=== PATIENT | male | born 1970 | race Caucasian/White ===

== ENCOUNTER 2020-01-29 14:04 | Inpatient (IN) ==
[2020-01-29] MEDS ORDERED: Fluticasone Propionate Nasal 50 MCG/SPRAY BOTTLE NS PRN (14:14)
[2020-01-29] MEDS ORDERED: USTEKINUMAB 45 MG SQ SCH (14:15)
[2020-01-29] MEDS: Gabapentin 100 MG CAPSULE PO SCH ×2 (15:56→21:06)
[2020-01-30 05:44] LABS: Basophils % 0.5 %; Eosinophils # 0.2 K/mcL (0.0-0.6); Eosinophils % 4.1 %; Hematocrit 31.7 % (37.5-50.1); Hemoglobin 10.3 g/dL (12.9-16.9); Immature Granulocytes % 0.5 % (0-4); Lymphocytes # 2.1 K/mcL (0.6-4.6); Lymphocytes % 38.1 %; Mean Corpuscular HGB Conc 32.5 g/dL (31.6-35.5); Mean Corpuscular Hemoglobin 29.8 pg (28.0-33.3); Mean Corpuscular Volume 91.6 fL (83.0-100.0); Mean Platelet Volume 10.2 fL (9.4-12.4); Monocytes # 0.6 K/mcL (0.0-1.3); Monocytes % 10.6 %; Neutrophils # 2.6 K/mcL (1.6-8.9); Nucleated Red Blood Cells 0.7 /100 WBC (0); Platelet Count 279 K/mcL (140-400); Red Blood Count 3.46 M/mcL (4.19-5.50); Red Cell Distribution Width 17.9 % (11.5-14.5); Segmented Neutrophils % 46.2 %; White Blood Count 5.6 K/mcL (4.3-11.1)
[2020-01-30 05:59] LABS: BUN/Creatinine Ratio 5 (6-26); Blood Urea Nitrogen 5 mg/dL (6-20); Calcium 8.3 mg/dL (8.6-10.3); Carbon Dioxide 26 mEq/L (23-29); Chloride 102 mEq/L (98-107); Glucose 103 mg/dL (70-105); Osmolality,Calculated 274 (280-300); Potassium 3.6 mEq/L (3.5-5.1); Sodium 133 mEq/L (136-145); eGFR For African Americans > 60 (> 60); eGFR For Non-African Americans > 60 (> 60)
[2020-01-30] MEDS: Nicotine 21 MG PATCH.TD24 TD SCH (08:58)
[2020-01-30] MEDS: Gabapentin 100 MG CAPSULE PO SCH ×3 (08:58→20:49)
[2020-01-30] MEDS ORDERED: Cyanocobalamin (B-12) 1,000 MCG TABLET PO SCH (09:00)
[2020-01-30] MEDS ORDERED: Budesonide/Formoterol 160/4.5 1 PUFF INH IH SCH (10:00)
[2020-01-31] MEDS: Gabapentin 100 MG CAPSULE PO SCH ×3 (08:18→20:13)
[2020-01-31] MEDS: Cyanocobalamin (B-12) 1,000 MCG/ML VIAL SQ SCH (08:19)
[2020-01-31] MEDS: Nicotine 21 MG PATCH.TD24 TD SCH (08:20)
[2020-01-31] MEDS ORDERED: Testosterone Cypionate 200 MG/ML 10 ML MDV IM SCH (10:00)
[2020-02-01] MEDS: *HR* Enoxaparin 40 MG/0.4 ML SYRINGE SQ SCH (04:39)
[2020-02-01] MEDS: Gabapentin 100 MG CAPSULE PO SCH ×3 (08:40→21:52)
[2020-02-01] MEDS: Cyanocobalamin (B-12) 1,000 MCG/ML VIAL SQ SCH (08:40)
[2020-02-01] MEDS: Nicotine 21 MG PATCH.TD24 TD SCH (08:40)
[2020-02-01] MEDS ORDERED: E-Z-HD (BARIUM SULF) SUSPENSION PO ONE (11:46)
[2020-02-01] MEDS ORDERED: Barium Sulfate 1 TAB TABLET PO ONE (11:46)
[2020-02-01] MEDS ORDERED: E-Z-PAQUE (BARIUM SULF) SUSP 1 BOTTLE PO ONE (11:46)
[2020-02-02] MEDS: *HR* Enoxaparin 40 MG/0.4 ML SYRINGE SQ SCH (05:14)
[2020-02-02] MEDS: Nicotine 21 MG PATCH.TD24 TD SCH (08:06)
[2020-02-02] MEDS: Gabapentin 100 MG CAPSULE PO SCH ×3 (08:07→21:12)
[2020-02-02] MEDS: Cyanocobalamin (B-12) 1,000 MCG/ML VIAL SQ SCH (08:08)
[2020-02-03] MEDS: *HR* Enoxaparin 40 MG/0.4 ML SYRINGE SQ SCH (07:45)
[2020-02-03] MEDS: Gabapentin 100 MG CAPSULE PO SCH (07:46)
[2020-02-03] MEDS: Cyanocobalamin (B-12) 1,000 MCG/ML VIAL SQ SCH (07:47)
[2020-02-03] MEDS: Nicotine 21 MG PATCH.TD24 TD SCH (07:47)
[2020-02-03 08:35] VITALS: BP 139/74
[2020-02-03 08:46] LABS: Basophils % 0.7 %; Eosinophils # 0.3 K/mcL (0.0-0.6); Eosinophils % 4.6 %; Hematocrit 35.5 % (37.5-50.1); Hemoglobin 11.7 g/dL (12.9-16.9); Immature Granulocytes % 0.2 % (0-4); Lymphocytes # 1.3 K/mcL (0.6-4.6); Lymphocytes % 21.1 %; Mean Corpuscular Hemoglobin 29.6 pg (28.0-33.3); Mean Corpuscular Volume 89.9 fL (83.0-100.0); Mean Platelet Volume 10.3 fL (9.4-12.4); Monocytes # 0.9 K/mcL (0.0-1.3); Monocytes % 15.2 %; Neutrophils # 3.6 K/mcL (1.6-8.9); Platelet Count 320 K/mcL (140-400); Red Blood Count 3.95 M/mcL (4.19-5.50); Red Cell Distribution Width 17.9 % (11.5-14.5); Segmented Neutrophils % 58.2 %; White Blood Count 6.1 K/mcL (4.3-11.1)
[2020-02-03 09:30] LABS: Alanine Aminotransferase 13 Units/L (7-52); Albumin 3.6 g/dL (3.5-5.7); Albumin/Globulin Ratio 0.9 (1.1-2.2); Alkaline Phosphatase 80 Units/L (34-104); Aspartate Amino Transferase 26 Units/L (13-39); BUN/Creatinine Ratio 7 (6-26); Bilirubin,Total 0.6 mg/dL (0.3-1.0); Blood Urea Nitrogen 7 mg/dL (6-20); Calcium 9.2 mg/dL (8.6-10.3); Carbon Dioxide 25 mEq/L (23-29); Chloride 100 mEq/L (98-107); Glucose 106 mg/dL (70-105); Osmolality,Calculated 274 (280-300); Potassium 3.8 mEq/L (3.5-5.1); Sodium 133 mEq/L (136-145); Total Protein 7.6 g/dL (6.4-8.9); eGFR For African Americans > 60 (> 60); eGFR For Non-African Americans > 60 (> 60)
[2020-02-26] MEDS ORDERED: USTEKINUMAB 45 MG SQ SCH (15:30)
== END 2020-02-03 14:40 | disposition short-term general hospital (02) | DRG 95 ==
LOC: INPGRE 14:04
PROVIDERS: ADMIT Family Medicine; ATTEND Family Medicine